=== PATIENT | male | born 1970 | race American Indian/Alaskan Native ===

== ENCOUNTER 2017-06-28 11:31 | Emergency (ER) | payer BC ==
[2017-06-28 11:47] VITALS: BP 144/101
[2017-06-28] MEDS ORDERED: ZYLOPRIM PO ONE (12:57)
--- NOTE | 2017-06-28 13:04 | Emergency Department Report ---
HPI - General Chief Complaint: Extremity Injury, Lower Time Seen by Provider: 06/28/17 12:33 - HPI HPI: Patient is a 46-year-old male presents to ED complaining of left great toe pain that he noticed yesterday. Patient states his left great toe began hurting in his noticed some swelling yesterday. Patient states he did not hit sustaining injury to the foot. Patient states it hurts to put pressure on to the toe. He denies any lesions cuts so that's all, loss of function or sensation. ED Past Medical Hx - Past Medical History Previous Medical History?: Yes Hx Hypertension: Yes (none compliant) Additional medical history: High cholosterol - Surgical History Past Surgical History?: No - Social History Smoking Status: Current Every Day Smoker Substance Use Type: Alcohol, Prescribed - Medications Home Medications: Home Medications Medication Instructions Recorded Confirmed Last Taken Type Ibuprofen [Motrin] 600 mg PO Q8H PRN #30 tablet 09/26/15 Unknown Rx Ciprofloxacin HCl [Ciprofloxacin 500 mg PO BID #20 tablet 03/03/16 Unknown Rx TAB] Metoclopramide [Reglan] 10 mg PO QID PRN #30 tablet 03/03/16 Unknown Rx metroNIDAZOLE [Flagyl] 500 mg PO Q8HR #30 tablet 03/03/16 Unknown Rx oxyCODONE [Roxicodone TAB] 5 mg PO Q6HR PRN #20 tablet 03/03/16 Unknown Rx Cyclobenzaprine [Flexeril] 10 mg PO QHS PRN #20 tablet 06/28/17 Unknown Rx Ibuprofen [Motrin 800 MG tab] 800 mg PO Q8HR PRN #40 tablet 06/28/17 Unknown Rx ED Review of Systems ROS: Stated complaint: LEFT FOOT SWOLLEN Other details as noted in HPI Constitutional: denies: chills, fever Eyes: denies: eye pain, eye discharge, vision change ENT: denies: ear pain, throat pain Respiratory: denies: cough, shortness of breath, wheezing Cardiovascular: denies: chest pain, palpitations Endocrine: no symptoms reported Gastrointestinal: denies: abdominal pain, nausea, diarrhea Genitourinary: denies: urgency, dysuria Musculoskeletal: denies: back pain, joint swelling, arthralgia Skin: denies: rash, lesions Neurological: denies: headache, weakness, numbness, paresthesias, confusion Psychiatric: denies: anxiety, depression Hematological/Lymphatic: denies: easy bleeding, easy bruising Physical Exam - Physical Exam Vital Signs: Vital Signs 06/28/17 11:44 Temperature 98.3 F Pulse Rate 94 H Respiratory 20 Rate Blood Pressure 144/101 O2 Sat by Pulse 98 Oximetry Physical Exam: GENERAL: Alert and oriented x3, no apparent distress, Normal Gait, atraumatic. HEAD: Head is normocephalic and a-traumatic. EYES: Extra ocular muscles are intact. Pupils are equal, round, and reactive to light and accommodation. EARS: symetrical, atraumatic, non tender, ear canal clear and moderate cerumen, tympanic membrance non inflamed. gross auditory nml bilaterally. HEART: S1, S2 present, regular rate and rhythm without murmur, no rubs, no gallops. Non tender to palpation ABDOMEN: No organomegaly was noted,Positive bowel sounds, soft, and non- distended. . Nontender to palpation on all Quadrants, NO CVA tenderness. EXTREMITIES/MUSCULOSKELETAL: No cyanosis, clubbing, rash, lesions or edema. Full ROM bilaterally. UE/LE Pulses 2+ bilaterally. LE and UE 5+ strength bilaterally, left great toe moderately tender to palpation, erythematous, non- erythematous NEUROLOGIC: The patient is cooperative with no focal neurologic deficits. Normal speech. Normal sensation in bilateral upper and lower extremities, No loss of sensation, PSYCHIATRIC: Mood is congruent with affect, denies suicidal or homicidal ideations. SKIN: Warm and dry, No lesions, No ulceration or induration present. Body Four View: 1 - red, non edema, tender to palpation, warm to touch ED Course Vital Signs 06/28/17 11:44 Temperature 98.3 F Pulse Rate 94 H Respiratory 20 Rate Blood Pressure 144/101 O2 Sat by Pulse 98 Oximetry ED Medical Decision Making - Radiology Data Radiology results: report reviewed, image reviewed Ordering Physician: RADHA PARRA Date of Service: 06/28/17 Procedure(s): XR foot 2V LT Accession Number(s): [id number] cc: RADHA PARRA Fluoro Time In Minutes: LEFT FOOT, 2 views: History: Left foot pain The bony architecture is intact. Bony alignment is normal. No soft tissue abnormalities are seen. The joint spaces appear preserved. Moderate to large plantar spur. IMPRESSION: Plantar spur, otherwise, unremarkable exam. Transcribed By: TTR Dictated By: ROMINA VANG JR, MD Electronically Authenticated By: ROMINA VANG JR, MD Signed Date/Time: 06/28/17 8036 - Medical Decision Making 46-year-old male presents to ED with great toe pain of the left ED course: Patient received ED. Foot x-ray obtained. X-rays normal Discussed the patient x-ray results shows plantar spur this could be a cause of inflammation. I discussed the patient will follow up with the special services agent and symptoms worsen I discussed the patient to follow up with primary care physician in 3-5 days. I discussed rest of foot and keep it elevated for the next couple days. Critical care attestation.: If time is entered above; I have spent that time in minutes in the direct care of this critically ill patient, excluding procedure time. ED Disposition Clinical Impression: Foot pain, left, Bone spur of foot Disposition: DC-01 TO HOME OR SELFCARE Is pt being admited?: No Does the pt Need Aspirin: No Condition: Stable Instructions: Plantar Fasciitis (ED), Arthralgia (ED) Additional Instructions: Make sure to follow up with the primary care physician as discussed. Take all your medications as you've been prescribed. If you have any worsening symptoms or develop new symptoms please return to ED immediately. Prescriptions: Cyclobenzaprine [Flexeril] 10 mg PO QHS PRN #20 tablet PRN Reason: Muscle Spasm Ibuprofen [Motrin 800 MG tab] 800 mg PO Q8HR PRN #40 tablet PRN Reason: Pain Referrals: PRIMARY CARE, [Primary Care Provider] - 3-5 Days [facility] [Outside] - 3-5 Days [facility] [Outside] - 3-5 Days [facility] [Outside] - 3-5 Days Forms: Work/School Release Form Time of Disposition: 14:02
--- NOTE | 2017-06-28 13:31 | XRay Report ---
LEFT FOOT, 2 views: History: Left foot pain The bony architecture is intact. Bony alignment is normal. No soft tissue abnormalities are seen. The joint spaces appear preserved. Moderate to large plantar spur. IMPRESSION: Plantar spur, otherwise, unremarkable exam.
== END 2017-06-28 14:12 | disposition home or self-care (01) ==
LOC: ED 11:31
DX: M77.52 Other enthesopathy of left foot and ankle (principal); I10 Essential (primary) hypertension; E78.00 Pure hypercholesterolemia, unspecified; F17.200 Nicotine dependence, unspecified, uncomplicated
CPT/HCPCS: 99283

== ENCOUNTER 2018-04-11 09:53 | Emergency (ER) | payer OTHER, BC ==
[2018-04-11 10:04] VITALS: BP 164/108
[2018-04-11] MEDS ORDERED: MOTRIN PO ONE (10:43)
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
--- NOTE | 2018-04-11 12:10 | XRay Report ---
CERVICAL SPINE, 3 views: History: Neck pain. Findings: Mild degenerative disc disease is identified at C4-5 and C5-6. The remaining levels are within normal limits. The posterior elements are in appropriate relationship. No evidence for fracture, subluxation or bone lesion. Impression: Mild cervical spondylosis.
--- NOTE | 2018-04-11 12:11 | XRay Report ---
AP AND LATERAL LUMBOSACRAL SPINE: History: Low back pain. The vertebral bodies are well mineralized and normal in alignment and vertebral height with well preserved interspace distances. The visualized portions of the posterior elements are normal. IMPRESSION: Lumbar spine within normal limits.
== END 2018-04-11 12:31 | disposition home or self-care (01) ==
LOC: ED 09:53
DX: S39.012A Strain of muscle, fascia and tendon of lower back, initial encounter (principal); S13.4XXA Sprain of ligaments of cervical spine, initial encounter; I10 Essential (primary) hypertension; E78.00 Pure hypercholesterolemia, unspecified; F17.200 Nicotine dependence, unspecified, uncomplicated; Z79.899 Other long term (current) drug therapy; V89.2XXA Person injured in unspecified motor-vehicle accident, traffic, initial encounter; Y93.89 Activity, other specified; Y99.8 Other external cause status; Y92.410 Unspecified street and highway as the place of occurrence of the external cause
CPT/HCPCS: 72040; 72100; 99283

== ENCOUNTER 2018-08-15 10:52 | Emergency (ER) | payer BC ==
[2018-08-15 10:59] VITALS: BP 140/86
[2018-08-15] MEDS ORDERED: IBUPROFEN PO ONE (11:12)
--- NOTE | 2018-08-15 11:15 | Emergency Department Report ---
ED Lower Extremity HPI - General Chief Complaint: Extremity Injury, Lower Stated Complaint: (L) KNEE PAIN Time Seen by Provider: 08/15/18 11:07 Source: patient Mode of arrival: Ambulatory Limitations: No Limitations - History of Present Illness Initial Comments: This is a 48-year-old male nontoxic, well nourished in appearance, no acute signs of distress presents to the ED with c/o of left knee pain 3 weeks. 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 Patient denies any trauma. Patient denies any numbness, tingling, fever, chills, nausea, vomiting, chest pain, shortness of breath, headache, stiff neck. Patient denies any joint swelling or joint redness. Patient denies decreased range of motion. Patient stated has decreased gait due to pain. Patient denies any allergies. MD Complaint: knee injury -: week(s) (3) Injury: Knee: Left Severity: mild Severity scale (0 -10): 8 Improves With: immobilization Worsens With: weight bearing, movement, palpation Associated Symptoms: able to partially bear weight, ambulatory. denies: snap/pop sensation, swelling, numbness, tingling, unable to bear weight - Related Data Previous Rx's Medication Instructions Recorded Last Taken Type Ibuprofen [Motrin] 600 mg PO Q8H PRN #30 tablet 09/26/15 Unknown Rx Ciprofloxacin HCl [Ciprofloxacin 500 mg PO BID #20 tablet 03/03/16 Unknown Rx TAB] Metoclopramide [Reglan] 10 mg PO QID PRN #30 tablet 03/03/16 Unknown Rx metroNIDAZOLE [Flagyl] 500 mg PO Q8HR #30 tablet 03/03/16 Unknown Rx oxyCODONE [Roxicodone TAB] 5 mg PO Q6HR PRN #20 tablet 03/03/16 Unknown Rx Cyclobenzaprine [Flexeril] 10 mg PO QHS PRN #20 tablet 06/28/17 Unknown Rx Ibuprofen [Motrin 800 MG tab] 800 mg PO Q8HR PRN #40 tablet 06/28/17 Unknown Rx Cyclobenzaprine [Flexeril] 10 mg PO QHS PRN #10 tablet 04/11/18 Unknown Rx Ibuprofen [Motrin] 600 mg PO Q8H PRN #20 tablet 04/11/18 Unknown Rx Ibuprofen [Motrin] 600 mg PO Q8H PRN #20 tablet 08/15/18 Unknown Rx Allergies Allergy/AdvReac Type Severity Reaction Status Date / Time No Known Allergies Allergy Verified 07/05/14 10:48 ED Review of Systems ROS: Stated complaint: (L) KNEE PAIN Other details as noted in HPI Constitutional: denies: chills, fever Eyes: denies: eye pain, eye discharge, vision change ENT: denies: ear pain, throat pain Respiratory: denies: cough, shortness of breath, wheezing Cardiovascular: denies: chest pain, palpitations Endocrine: no symptoms reported Gastrointestinal: denies: abdominal pain, nausea, diarrhea Genitourinary: denies: urgency, dysuria Musculoskeletal: denies: back pain, joint swelling, arthralgia Skin: denies: rash, lesions Neurological: denies: headache, weakness, paresthesias Psychiatric: denies: anxiety, depression Hematological/Lymphatic: denies: easy bleeding, easy bruising ED Past Medical Hx - Past Medical History Hx Hypertension: Yes (none compliant) Additional medical history: High cholosterol - Social History Smoking Status: Never Smoker Substance Use Type: Alcohol - Medications Home Medications: Home Medications Medication Instructions Recorded Confirmed Last Taken Type Ibuprofen [Motrin] 600 mg PO Q8H PRN #30 tablet 09/26/15 Unknown Rx Ciprofloxacin HCl [Ciprofloxacin 500 mg PO BID #20 tablet 03/03/16 Unknown Rx TAB] Metoclopramide [Reglan] 10 mg PO QID PRN #30 tablet 03/03/16 Unknown Rx metroNIDAZOLE [Flagyl] 500 mg PO Q8HR #30 tablet 03/03/16 Unknown Rx oxyCODONE [Roxicodone TAB] 5 mg PO Q6HR PRN #20 tablet 03/03/16 Unknown Rx Cyclobenzaprine [Flexeril] 10 mg PO QHS PRN #20 tablet 06/28/17 Unknown Rx Ibuprofen [Motrin 800 MG tab] 800 mg PO Q8HR PRN #40 tablet 06/28/17 Unknown Rx Cyclobenzaprine [Flexeril] 10 mg PO QHS PRN #10 tablet 04/11/18 Unknown Rx Ibuprofen [Motrin] 600 mg PO Q8H PRN #20 tablet 04/11/18 Unknown Rx Ibuprofen [Motrin] 600 mg PO Q8H PRN #20 tablet 08/15/18 Unknown Rx ED Physical Exam - General Limitations: No Limitations General appearance: alert, in no apparent distress - Head Head exam: Present: atraumatic, normocephalic - Extremities Exam Extremities exam: Present: normal inspection, full ROM, tenderness, normal capillary refill. Absent: joint swelling, calf tenderness - Expanded Lower Extremity Exam Left Hip exam: Present: normal inspection, full ROM Upper Leg exam: Present: normal inspection, full ROM Knee exam: Present: normal inspection, full ROM, tenderness, full knee extension. Absent: swelling, abrasion, laceration, ecchymosis, deformity, crepidus, dislocation, erythema, effusion, pain w/ pronation/supination, posterior draw sign, pain/laxity with valgus, pain/laxity with varus Lower Leg exam: Present: normal inspection, full ROM Ankle exam: Present: normal inspection, full ROM Foot/Toe exam: Present: normal inspection, full ROM Neuro vascular tendon exam: Present: no vascular compromise Gait: Positive: observed and normal - Back Exam Back exam: Present: normal inspection, full ROM - Neurological Exam Neurological exam: Present: alert, oriented X3 - Psychiatric Psychiatric exam: Present: normal affect, normal mood - Skin Skin exam: Present: warm, dry, intact, normal color. Absent: rash ED Course Vital Signs 08/15/18 08/15/18 10:57 11:24 Temperature 97.7 F Pulse Rate 97 H Respiratory 18 18 Rate Blood Pressure 140/86 O2 Sat by Pulse 99 Oximetry - Reevaluation(s) Reevaluation #1: 08/15/18 11:14 Patient is speaking in full sentences with no signs of distress noted. ED Lower Extremity MDM - Medical Decision Making This is a 48-year-old male that presents with left knee strain. Patient is stable and was examined by me. I referred patient to an orthopedic doctor for further evaluation for possible MRI. X-ray has been obtained and dictated by the radiologist. Patient is notified of the x-ray report with noted by the patient. Patient does have normal gait with no tenderness and no joint swelling. No ecchymosis. no joint redness or swelling. Not warm to touch. No signs of cellulites present. Patient was instructed to RICE therapy. Patient received janis wrap. Patient received Motrin for pain. Patient is discharged with Motrin. At time of discharge, the patient does not seem toxic or ill in appearance. No acute signs of distress noted. Patient agrees to discharge treatment plan of care. No further questions noted by the patient. Critical care attestation.: If time is entered above; I have spent that time in minutes in the direct care of this critically ill patient, excluding procedure time. ED Disposition Clinical Impression: Strain of left knee Qualifiers: Encounter type: initial encounter Qualified Code(s): S86.912A - Strain of unspecified muscle(s) and tendon(s) at lower leg level, left leg, initial encounter Disposition: TO HOME OR SELFCARE Is pt being admited?: No Does the pt Need Aspirin: No Condition: Stable Instructions: Knee Pain (ED), RICE Therapy (ED) Additional Instructions: Follow-up with a orthopedic doctor in 3-5 days or if symptoms worsen and continue return to emergency room as soon as possible. Prescriptions: Ibuprofen [Motrin] 600 mg PO Q8H PRN #20 tablet PRN Reason: Pain Referrals: PRIMARY CAREMD [Referring] - 3-5 Days CAMRON ARTEAGA MD [Staff Physician] - 3-5 Days [facility] [Outside] - 3-5 Days Forms: Work/School Release Form(ED)
--- NOTE | 2018-08-15 12:00 | XRay Report ---
LEFT KNEE, 3 views: History: Knee pain The bony architecture is intact without evidence of fracture or dislocation. A small joint effusion is identified on the lateral image. IMPRESSION: Small joint effusion. No bony abnormality is detected.
== END 2018-08-15 12:20 | disposition home or self-care (01) ==
LOC: ED 10:52
DX: S86.912A Strain of unspecified muscle(s) and tendon(s) at lower leg level, left leg, initial encounter (principal); X58.XXXA Exposure to other specified factors, initial encounter; Y93.89 Activity, other specified; Y92.89 Other specified places as the place of occurrence of the external cause; Y99.8 Other external cause status

== ENCOUNTER 2019-10-22 08:27 | Emergency (ER) | payer BC ==
[2019-10-22 08:33] VITALS: BP 155/97
[2019-10-22] MEDS ORDERED: IBUPROFEN 800 MG TAB PO ONE (09:08)
--- NOTE | 2019-10-22 09:53 | XRay Report ---
Right elbow, 3 views INDICATION: Pain and swelling today FINDINGS: The joint space is maintained. There is no fracture or dislocation. There is moderate size spur from the olecranon and there may be slight olecranon bursal swelling. Otherwise no abnormality Signer Name: Kentrell Martinez MD Signed: 10/22/2019 9:48 AM Workstation Name: [id number]
--- NOTE | 2019-10-22 10:04 | Emergency Department Report ---
ED Upper Extremity Inj HPI - General Chief Complaint: Extremity Injury, Upper Stated Complaint: RIGHT ELBOW SWOLLEN Time Seen by Provider: 10/22/19 08:57 Source: patient Mode of arrival: Ambulatory Limitations: No Limitations - History of Present Illness Initial Comments: This is a 49-year-old male nontoxic, well nourished in appearance, no acute signs of distress presents to the ED with c/o of right elbow pain 1 day. Patient denies any known injuries or trauma. Patient denies any numbness, tingling, fever, chills, nausea, vomiting, chest pain, shortness of breath, headache, stiff neck. Patient denies any joint swelling or joint redness. Patient denies decreased range of motion. Patient denies any allergies or significant past medical history. MD Complaint: Injury to:: right, elbow -: days(s) Other Extremity Injury: Elbow: Right Other Injuries: none Severity scale (0 -10): 3 Improves With: immobilization Worsens With: movement of extremity Associated Symptoms: denies other symptoms. denies: weakness, numbness, neck pain, suspects foreign body, nausea/vomiting, heard/felt popping sensat - Related Data Previous Rx's Medication Instructions Recorded Last Taken Type Ibuprofen [Motrin] 600 mg PO Q8H PRN #30 tablet 09/26/15 Unknown Rx Ciprofloxacin HCl [Ciprofloxacin 500 mg PO BID #20 tablet 03/03/16 Unknown Rx TAB] Metoclopramide [Reglan] 10 mg PO QID PRN #30 tablet 03/03/16 Unknown Rx metroNIDAZOLE [Flagyl] 500 mg PO Q8HR #30 tablet 03/03/16 Unknown Rx oxyCODONE [roxiCODONE] 5 mg PO Q6HR PRN #20 tablet 03/03/16 Unknown Rx Cyclobenzaprine [Flexeril] 10 mg PO QHS PRN #20 tablet 06/28/17 Unknown Rx Ibuprofen [Motrin 800 MG tab] 800 mg PO Q8HR PRN #40 tablet 06/28/17 Unknown Rx Cyclobenzaprine [Flexeril] 10 mg PO QHS PRN #10 tablet 04/11/18 Unknown Rx Ibuprofen [Motrin] 600 mg PO Q8H PRN #20 tablet 04/11/18 Unknown Rx Ibuprofen [Motrin] 600 mg PO Q8H PRN #20 tablet 08/15/18 Unknown Rx Naproxen 500 mg PO Q12H PRN #20 tablet 10/22/19 Unknown Rx Allergies Allergy/AdvReac Type Severity Reaction Status Date / Time No Known Allergies Allergy Verified 07/05/14 10:48 ED Review of Systems ROS: Stated complaint: RIGHT ELBOW SWOLLEN Other details as noted in HPI Constitutional: denies: chills, fever Eyes: denies: eye pain, eye discharge, vision change ENT: denies: ear pain, throat pain Respiratory: denies: cough, shortness of breath, wheezing Cardiovascular: denies: chest pain, palpitations Endocrine: no symptoms reported Gastrointestinal: denies: abdominal pain, nausea, diarrhea Genitourinary: denies: urgency, dysuria Musculoskeletal: denies: back pain, joint swelling, arthralgia Skin: denies: rash, lesions Neurological: denies: headache, weakness, paresthesias Psychiatric: denies: anxiety, depression Hematological/Lymphatic: denies: easy bleeding, easy bruising ED Past Medical Hx - Past Medical History Previous Medical History?: Yes Hx Hypertension: Yes (none compliant) Additional medical history: High cholosterol - Surgical History Past Surgical History?: No - Social History Smoking Status: Current Every Day Smoker Substance Use Type: Alcohol - Medications Home Medications: Home Medications Medication Instructions Recorded Confirmed Last Taken Type Ibuprofen [Motrin] 600 mg PO Q8H PRN #30 tablet 09/26/15 Unknown Rx Ciprofloxacin HCl [Ciprofloxacin 500 mg PO BID #20 tablet 03/03/16 Unknown Rx TAB] Metoclopramide [Reglan] 10 mg PO QID PRN #30 tablet 03/03/16 Unknown Rx metroNIDAZOLE [Flagyl] 500 mg PO Q8HR #30 tablet 03/03/16 Unknown Rx oxyCODONE [roxiCODONE] 5 mg PO Q6HR PRN #20 tablet 03/03/16 Unknown Rx Cyclobenzaprine [Flexeril] 10 mg PO QHS PRN #20 tablet 06/28/17 Unknown Rx Ibuprofen [Motrin 800 MG tab] 800 mg PO Q8HR PRN #40 tablet 06/28/17 Unknown Rx Cyclobenzaprine [Flexeril] 10 mg PO QHS PRN #10 tablet 04/11/18 Unknown Rx Ibuprofen [Motrin] 600 mg PO Q8H PRN #20 tablet 04/11/18 Unknown Rx Ibuprofen [Motrin] 600 mg PO Q8H PRN #20 tablet 08/15/18 Unknown Rx Naproxen 500 mg PO Q12H PRN #20 tablet 10/22/19 Unknown Rx ED Physical Exam - General Limitations: No Limitations General appearance: alert, in no apparent distress - Head Head exam: Present: atraumatic, normocephalic - Extremities Exam Extremities exam: Present: normal inspection, full ROM, tenderness, normal capillary refill. Absent: joint swelling - Expanded Upper Extremity Exam Right General: Present: normal inspection Shoulder Exam: Present: normal inspection, full ROM. Absent: tenderness, swelling Upper Arm exam: Present: normal inspection, full ROM. Absent: tenderness, swelling Elbow exam: Present: normal inspection, full ROM, tenderness, effusion. Absent: swelling, abrasion, laceration, ecchymosis, deformity, crepidus, dislocation, erythema, pain w/ pronation/supination, tenderness over radial head Forearm Wrist exam: Present: normal inspection, full ROM. Absent: tenderness, swelling Hand Wrist exam: Present: normal inspection, full ROM. Absent: tenderness, swelling Vascular: Present: vascular compromise, normal capillary refill - Back Exam Back exam: Present: normal inspection, full ROM - Neurological Exam Neurological exam: Present: alert, oriented X3, normal gait - Psychiatric Psychiatric exam: Present: normal affect, normal mood ED Course Vital Signs 10/22/19 08:32 Temperature 98.4 F Pulse Rate 83 Respiratory 18 Rate Blood Pressure 155/97 O2 Sat by Pulse 99 Oximetry - Reevaluation(s) Reevaluation #1: 10/22/19 10:02 Patient is speaking in full sentences with no signs of distress noted. ED Medical Decision Making - Medical Decision Making This is a 49-year-old male that presents with right elbow bursitis. Patient is stable and was examined by me. I referred patient to an orthopedic doctor for further evaluation for possible MRI. X-ray has been obtained and dictated by the radiologist. Patient is notified of the x-ray report with noted by the patient. Patient does have normal ROM with no tenderness and no joint swelling. No ecchymosis. no joint redness or swelling. Not warm to touch. No signs of cellulites present. Patient was instructed to RICE therapy. Patient received Motrin for pain. Patient is discharged with Naproxen. At time of discharge, the patient does not seem toxic or ill in appearance. No acute signs of distress noted. Patient agrees to discharge treatment plan of care. No further questions noted by the patient. Critical care attestation.: If time is entered above; I have spent that time in minutes in the direct care of this critically ill patient, excluding procedure time. ED Disposition Clinical Impression: Olecranon bursitis, right elbow Disposition: TO HOME OR SELFCARE Is pt being admited?: No Does the pt Need Aspirin: No Condition: Stable Instructions: Elbow Bursitis (ED), RICE Therapy (ED) Additional Instructions: Follow-up with a orthopedic doctor in 3-5 days or if symptoms worsen and continue return to emergency room as soon as possible. Prescriptions: Naproxen 500 mg PO Q12H PRN #20 tablet PRN Reason: Pain , Severe (7-10) Referrals: GAVIOTA SUAREZ MD [Primary Care Provider] - 3-5 Days [facility]IMARY [facility] [Referring] - 3-5 Days [facility] [Provider Group] - 3-5 Days Forms: Work/School Release Form(ED)
== END 2019-10-22 10:11 | disposition home or self-care (01) ==
LOC: ED 08:27
DX: M70.21 Olecranon bursitis, right elbow (principal); I10 Essential (primary) hypertension; F17.200 Nicotine dependence, unspecified, uncomplicated; Z79.899 Other long term (current) drug therapy
CPT/HCPCS: 99283

== ENCOUNTER 2020-05-07 09:43 | Emergency (ER) | payer BC ==
[2020-05-07 10:05] VITALS: BP 130/88
[2020-05-07] MEDS ORDERED: KETOROLAC 30 MG/1 ML INJ IM ONE (11:13)
--- NOTE | 2020-05-07 11:20 | Emergency Department Report ---
ED Back Pain/Injury HPI - General Chief Complaint: Back Pain/Injury Stated Complaint: COLD LOWER BACK PAINS Time Seen by Provider: 05/07/20 10:54 Source: patient Limitations: No Limitations - History of Present Illness Initial Comments: This is a pleasant 49-year-old male who presents the emerge department chief complaint of left-sided lower back pain that does not radiate over the past 2 days. Patient reports he recently moved and thinks he may have twisted his back. He also reports he has been having nasal congestion, cough and fatigue over the past 2 days. He reports his son had an upper respiratory infection and his symptoms are similar. Patient denies any associated fever, chills, night sweats, headache, dizziness, blurry vision, nausea, vomiting, diarrhea, chest pain, shortness of breath, saddle anesthesia, urinary or bowel incontinence or any other associated symptoms. - Related Data Previous Rx's Medication Instructions Recorded Last Taken Type Ibuprofen [Motrin] 600 mg PO Q8H PRN #30 tablet 09/26/15 Unknown Rx Ciprofloxacin HCl [Ciprofloxacin 500 mg PO BID #20 tablet 03/03/16 Unknown Rx TAB] Metoclopramide [Reglan] 10 mg PO QID PRN #30 tablet 03/03/16 Unknown Rx metroNIDAZOLE [Flagyl] 500 mg PO Q8HR #30 tablet 03/03/16 Unknown Rx oxyCODONE [roxiCODONE] 5 mg PO Q6HR PRN #20 tablet 03/03/16 Unknown Rx Cyclobenzaprine [Flexeril] 10 mg PO QHS PRN #20 tablet 06/28/17 Unknown Rx Ibuprofen [Motrin 800 MG tab] 800 mg PO Q8HR PRN #40 tablet 06/28/17 Unknown Rx Cyclobenzaprine [Flexeril] 10 mg PO QHS PRN #10 tablet 04/11/18 Unknown Rx Ibuprofen [Motrin] 600 mg PO Q8H PRN #20 tablet 04/11/18 Unknown Rx Ibuprofen [Motrin] 600 mg PO Q8H PRN #20 tablet 08/15/18 Unknown Rx Naproxen 500 mg PO Q12H PRN #20 tablet 10/22/19 Unknown Rx methOCARBAMOL [Robaxin TAB] 500 mg PO Q6H #30 tablet 05/07/20 Unknown Rx methylPREDNISolone [Medrol 4MG 4 mg PO ONCE #1 tab.ds.pk 05/07/20 Unknown Rx DOSEPAK (21 tabs)] Allergies Allergy/AdvReac Type Severity Reaction Status Date / Time No Known Allergies Allergy Verified 07/05/14 10:48 ED Review of Systems ROS: Stated complaint: COLD LOWER BACK PAINS Other details as noted in HPI Constitutional: denies: chills, fever Eyes: denies: eye pain, eye discharge, vision change ENT: as per HPI, congestion. denies: ear pain, throat pain Respiratory: see HPI, cough. denies: shortness of breath, wheezing Cardiovascular: denies: chest pain, palpitations Endocrine: no symptoms reported Gastrointestinal: denies: abdominal pain, nausea, diarrhea Genitourinary: denies: urgency, dysuria Musculoskeletal: as per HPI, back pain. denies: joint swelling, arthralgia Skin: denies: rash, lesions Neurological: denies: headache, weakness, paresthesias Psychiatric: denies: anxiety, depression Hematological/Lymphatic: denies: easy bleeding, easy bruising ED Past Medical Hx - Past Medical History Hx Hypertension: Yes (none compliant) Additional medical history: High cholosterol - Social History Smoking Status: Current Every Day Smoker Substance Use Type: Alcohol - Medications Home Medications: Home Medications Medication Instructions Recorded Confirmed Last Taken Type Ibuprofen [Motrin] 600 mg PO Q8H PRN #30 tablet 09/26/15 Unknown Rx Ciprofloxacin HCl [Ciprofloxacin 500 mg PO BID #20 tablet 03/03/16 Unknown Rx TAB] Metoclopramide [Reglan] 10 mg PO QID PRN #30 tablet 03/03/16 Unknown Rx metroNIDAZOLE [Flagyl] 500 mg PO Q8HR #30 tablet 03/03/16 Unknown Rx oxyCODONE [roxiCODONE] 5 mg PO Q6HR PRN #20 tablet 03/03/16 Unknown Rx Cyclobenzaprine [Flexeril] 10 mg PO QHS PRN #20 tablet 06/28/17 Unknown Rx Ibuprofen [Motrin 800 MG tab] 800 mg PO Q8HR PRN #40 tablet 06/28/17 Unknown Rx Cyclobenzaprine [Flexeril] 10 mg PO QHS PRN #10 tablet 04/11/18 Unknown Rx Ibuprofen [Motrin] 600 mg PO Q8H PRN #20 tablet 04/11/18 Unknown Rx Ibuprofen [Motrin] 600 mg PO Q8H PRN #20 tablet 08/15/18 Unknown Rx Naproxen 500 mg PO Q12H PRN #20 tablet 10/22/19 Unknown Rx methOCARBAMOL [Robaxin TAB] 500 mg PO Q6H #30 tablet 05/07/20 Unknown Rx methylPREDNISolone [Medrol 4MG 4 mg PO ONCE #1 tab.ds.pk 05/07/20 Unknown Rx DOSEPAK (21 tabs)] ED Physical Exam - General Limitations: No Limitations General appearance: alert, in no apparent distress - Head Head exam: Present: atraumatic, normocephalic - Eye Eye exam: Present: normal appearance, PERRL, EOMI Pupils: Present: normal accommodation - ENT ENT exam: Present: normal exam, normal orophraynx, mucous membranes moist - Neck Neck exam: Present: normal inspection, full ROM. Absent: tenderness, meningismus - Respiratory Respiratory exam: Present: normal lung sounds bilaterally. Absent: respiratory distress, wheezes, rales, rhonchi, stridor - Cardiovascular Cardiovascular Exam: Present: regular rate, normal rhythm, normal heart sounds. Absent: systolic murmur, diastolic murmur, rubs, gallop - GI/Abdominal GI/Abdominal exam: Present: soft, normal bowel sounds. Absent: distended, tenderness, guarding, rebound, rigid - Rectal Rectal exam: Present: deferred - Extremities Exam Extremities exam: Present: normal inspection, full ROM, tenderness. Absent: calf tenderness - Back Exam Back exam: Present: normal inspection, full ROM, tenderness, paraspinal tenderness (TTP to left paraspinal area. no midline cervical, thoracic or lumbar TTP ). Absent: CVA tenderness (R), CVA tenderness (L) - Neurological Exam Neurological exam: Present: alert, oriented X3, CN II-XII intact, normal gait, reflexes normal (Normal patellar and Achilles tendon reflexes 2+ bilaterally) - Psychiatric Psychiatric exam: Present: normal affect, normal mood - Skin Skin exam: Present: warm, dry, intact, normal color. Absent: rash ED Course Vital Signs 05/07/20 10:02 Temperature 98.3 F Pulse Rate 95 H Respiratory 18 Rate Blood Pressure 130/88 O2 Sat by Pulse 95 Oximetry ED Medical Decision Making - Medical Decision Making Patient nontoxic no acute distress. Vitals are stable. Patient had no red flags for his back pain with no fever, saddle anesthesia, urinary or bowel incontinence, urinary retention. He had a normal nonfocal neurologic exam. He had only minimal pain with extension but no pain with flexion. Suspect the patient's pain is likely musculoskeletal. I will give an injection of Toradol in the emerge department and due to his cold symptoms which I think are likely related to a viral respiratory tract infection will send home with steroids and cough medication. Do not think any antibiotics are necessary at this time. His lung sounds are clear. He is PERC negative and his Wells criteria is a low risk for PE. Recommend he return to the emergency department any change or worsening symptoms were follow-up with primary care doctor. - Differential Diagnosis URI, pneumonia, strain, sprain Critical care attestation.: If time is entered above; I have spent that time in minutes in the direct care of this critically ill patient, excluding procedure time. ED Disposition Clinical Impression: Acute myofascial strain of lumbosacral region Qualifiers: Encounter type: initial encounter Qualified Code(s): S39.012A - Strain of muscle, fascia and tendon of lower back, initial encounter URI (upper respiratory infection) Qualifiers: URI type: unspecified viral URI Qualified Code(s): J06.9 - Acute upper respiratory infection, unspecified Disposition: DC- TO HOME OR SELFCARE Is pt being admited?: No Condition: Stable Instructions: Muscle Strain (ED) Prescriptions: methylPREDNISolone [Medrol 4MG DOSEPAK (21 tabs)] 4 mg PO ONCE #1 tab.ds.pk methOCARBAMOL [Robaxin TAB] 500 mg PO Q6H #30 tablet Referrals: ALEJANDRO REYES MD [Primary Care Provider] - 3-5 Days Forms: Work/School Release Form(ED) Time of Disposition: 11:28
== END 2020-05-07 13:58 | disposition home or self-care (01) ==
LOC: ED 09:43
DX: S39.012A Strain of muscle, fascia and tendon of lower back, initial encounter (principal); J06.9 Acute upper respiratory infection, unspecified; I10 Essential (primary) hypertension; F17.200 Nicotine dependence, unspecified, uncomplicated; Z79.1 Long term (current) use of non-steroidal anti-inflammatories (NSAID); Z79.899 Other long term (current) drug therapy; X50.1XXA Overexertion from prolonged static or awkward postures, initial encounter; Y93.89 Activity, other specified; Y92.89 Other specified places as the place of occurrence of the external cause; Y99.8 Other external cause status
CPT/HCPCS: 99281

== ENCOUNTER 2020-05-19 06:51 | Emergency (ER) | payer BC, OTHER ==
[2020-05-19 07:00] VITALS: BP 168/98
[2020-05-19] MEDS ORDERED: dexAMETHasone 20 MG/5 ML VIAL IM ONE (08:57)
[2020-05-19] MEDS ORDERED: KETOROLAC 60 MG/2 ML INJ IM ONE (08:57)
--- NOTE | 2020-05-19 09:00 | XRay Report ---
LEFT ANKLE 2 VIEWS INDICATION / CLINICAL INFORMATION: swelling and pain COMPARISON: None available. FINDINGS: BONES / JOINT(S): No acute fracture or subluxation. No significant arthritis. There is spurring on th e calcaneus at the insertion site of the plantar fascia. SOFT TISSUES: No significant abnormality. ADDITIONAL FINDINGS: None. Signer Name: Abdoul Crocker MD Signed: 05/19/2020 8:56 AM Workstation Name: [id number]
--- NOTE | 2020-05-19 09:12 | Emergency Department Report ---
ED General Adult HPI - General Chief complaint: Extremity Problem,Nontraumatic Stated complaint: LEFT FOOT SWOLLEN Time Seen by Provider: 05/19/20 07:58 Source: patient Mode of arrival: Ambulatory Limitations: No Limitations - History of Present Illness Initial comments: 49-year-old -[place] male patient with history of hypertension presents with complaints of sudden onset of left foot pain x yesterday. He denies any injury to the foot, fever/chills/sweats, wounds, or history of gout. Patient rates his pain as 8/10 in severity and states it worsened upon waking this morning. He also denies any numbness/tingling/weakness in his foot, but does report some mild swelling and warmth to the foot -: Sudden Severity scale (0 -10): 8 - Related Data Previous Rx's Medication Instructions Recorded Last Taken Type Ibuprofen [Motrin] 600 mg PO Q8H PRN #30 tablet 09/26/15 Unknown Rx Ciprofloxacin HCl [Ciprofloxacin 500 mg PO BID #20 tablet 03/03/16 Unknown Rx TAB] Metoclopramide [Reglan] 10 mg PO QID PRN #30 tablet 03/03/16 Unknown Rx metroNIDAZOLE [Flagyl] 500 mg PO Q8HR #30 tablet 03/03/16 Unknown Rx oxyCODONE [roxiCODONE] 5 mg PO Q6HR PRN #20 tablet 03/03/16 Unknown Rx Cyclobenzaprine [Flexeril] 10 mg PO QHS PRN #20 tablet 06/28/17 Unknown Rx Ibuprofen [Motrin 800 MG tab] 800 mg PO Q8HR PRN #40 tablet 06/28/17 Unknown Rx Cyclobenzaprine [Flexeril] 10 mg PO QHS PRN #10 tablet 04/11/18 Unknown Rx Ibuprofen [Motrin] 600 mg PO Q8H PRN #20 tablet 04/11/18 Unknown Rx Ibuprofen [Motrin] 600 mg PO Q8H PRN #20 tablet 08/15/18 Unknown Rx Naproxen 500 mg PO Q12H PRN #20 tablet 10/22/19 Unknown Rx methOCARBAMOL [Robaxin TAB] 500 mg PO Q6H #30 tablet 05/07/20 Unknown Rx methylPREDNISolone [Medrol 4MG 4 mg PO ONCE #1 tab.ds.pk 05/07/20 Unknown Rx DOSEPAK (21 tabs)] Indomethacin 50 mg PO Q8H PRN 7 Days #21 capsule 05/19/20 Unknown Rx Allergies Allergy/AdvReac Type Severity Reaction Status Date / Time No Known Allergies Allergy Verified 07/05/14 10:48 ED Review of Systems ROS: Stated complaint: LEFT FOOT SWOLLEN Other details as noted in HPI Constitutional: denies: chills, diaphoresis, fever, malaise, weakness Respiratory: denies: shortness of breath Endocrine: denies: excessive sweating Gastrointestinal: denies: nausea, vomiting Musculoskeletal: joint swelling, arthralgia Skin: denies: rash, lesions, change in color Neurological: abnormal gait (Secondary to pain per pain). denies: numbness, paresthesias Hematological/Lymphatic: denies: easy bleeding, easy bruising, swollen glands ED Past Medical Hx - Past Medical History Previous Medical History?: Yes Hx Hypertension: Yes (none compliant) Additional medical history: High cholosterol - Surgical History Past Surgical History?: No - Social History Smoking Status: Current Every Day Smoker - Medications Home Medications: Home Medications Medication Instructions Recorded Confirmed Last Taken Type Ibuprofen [Motrin] 600 mg PO Q8H PRN #30 tablet 09/26/15 Unknown Rx Ciprofloxacin HCl [Ciprofloxacin 500 mg PO BID #20 tablet 03/03/16 Unknown Rx TAB] Metoclopramide [Reglan] 10 mg PO QID PRN #30 tablet 03/03/16 Unknown Rx metroNIDAZOLE [Flagyl] 500 mg PO Q8HR #30 tablet 03/03/16 Unknown Rx oxyCODONE [roxiCODONE] 5 mg PO Q6HR PRN #20 tablet 03/03/16 Unknown Rx Cyclobenzaprine [Flexeril] 10 mg PO QHS PRN #20 tablet 06/28/17 Unknown Rx Ibuprofen [Motrin 800 MG tab] 800 mg PO Q8HR PRN #40 tablet 06/28/17 Unknown Rx Cyclobenzaprine [Flexeril] 10 mg PO QHS PRN #10 tablet 04/11/18 Unknown Rx Ibuprofen [Motrin] 600 mg PO Q8H PRN #20 tablet 04/11/18 Unknown Rx Ibuprofen [Motrin] 600 mg PO Q8H PRN #20 tablet 08/15/18 Unknown Rx Naproxen 500 mg PO Q12H PRN #20 tablet 10/22/19 Unknown Rx methOCARBAMOL [Robaxin TAB] 500 mg PO Q6H #30 tablet 05/07/20 Unknown Rx methylPREDNISolone [Medrol 4MG 4 mg PO ONCE #1 tab.ds.pk 05/07/20 Unknown Rx DOSEPAK (21 tabs)] Indomethacin 50 mg PO Q8H PRN 7 Days #21 capsule 05/19/20 Unknown Rx ED Physical Exam - General Limitations: No Limitations General appearance: alert, in no apparent distress - Head Head exam: Present: atraumatic, normocephalic - Eye Eye exam: Present: normal appearance - ENT ENT exam: Present: mucous membranes moist - Neck Neck exam: Present: normal inspection - Respiratory Respiratory exam: Absent: respiratory distress - Cardiovascular Cardiovascular Exam: Present: tachycardia (Mild) - Extremities Exam Extremities exam: Present: full ROM, tenderness - Expanded Lower Extremity Exam Left Foot/Toe exam: Present: full ROM, tenderness (Significant tenderness to palpation atop the ankle and proximal metatarsals), swelling (Mild left lateral with warmth and no overlying erythema). Absent: abrasion, deformity, erythema, puncture wound, calcaneal tenderness Neuro vascular tendon exam: Present: no vascular compromise. Absent: motor deficit, sensory deficit - Neurological Exam Neurological exam: Present: alert, oriented X3 - Psychiatric Psychiatric exam: Present: normal affect, normal mood - Skin Skin exam: Present: warm, dry, intact, normal color. Absent: rash, cyanosis, diaphoretic, ecchymosis ED Course Vital Signs 05/19/20 06:57 Temperature 98.6 F Pulse Rate 98 H Respiratory 18 Rate Blood Pressure 168/98 O2 Sat by Pulse 100 Oximetry ED Medical Decision Making - Lab Data Result diagrams: 05/19/20 09:10 05/19/20 09:10 - Radiology Data Radiology results: report reviewed LEFT ANKLE 2 VIEWS INDICATION / CLINICAL INFORMATION: swelling and pain COMPARISON: None available. FINDINGS: BONES / JOINT(S): No acute fracture or subluxation. No significant arthritis. There is spurring on the calcaneus at the insertion site of the plantar fascia. SOFT TISSUES: No significant abnormality. ADDITIONAL FINDINGS: None. - Medical Decision Making 49-year-old -[place] male patient with history of hypertension presents with complaints of sudden onset of left foot pain x yesterday. He denies any injury to the foot, fever/chills/sweats, wounds, or history of gout. Patient rates his pain as 8/10 in severity and states it worsened upon waking this morning. He also denies any numbness/tingling/weakness in his foot, but does report some mild swelling and warmth to the foot No significant abnormalities noted on x-ray. There is warmth and mild swelling of the joint on exam with significant tenderness to palpation. Patient was minimally tachycardic on exam also, so labs were obtained. No significant abnormalities on CBC or BMP, however uric acid is mildly elevated at 8.5. Will treat for acute gouty arthritis with Toradol and Decadron. Indomethacin prescription given for home. Patient to follow-up with primary care doctor in 3 days. His pain is controlled, he is well-appearing, he is stable for discharge home. Strict return precautions were discussed in detail with patient who verbalized understanding. Critical care attestation.: If time is entered above; I have spent that time in minutes in the direct care of this critically ill patient, excluding procedure time. ED Disposition Clinical Impression: Gout of left foot Qualifiers: Gout etiology: idiopathic Chronicity: acute Qualified Code(s): M10.072 - Idiopathic gout, left ankle and foot Disposition: DC- TO HOME OR SELFCARE Is pt being admited?: No Condition: Stable Instructions: Low-Purine Eating Plan, Calcium Pyrophosphate Deposition Prescriptions: Indomethacin 50 mg PO Q8H PRN 7 Days #21 capsule PRN Reason: pain Referrals: PRIMARY CARE [Primary Care Provider] - 05/22/20
[2020-05-19 09:26] LABS: Basophils # (Auto) 0.1 K/mm3 (0.0-0.1); Basophils % (Auto) 0.7 % (0.0-1.8); Eosinophils # (Auto) 0.2 K/mm3 (0.0-0.4); Eosinophils % (Auto) 2.2 % (0.0-4.3); Hematocrit 42.9 % (35.5-45.6); Hemoglobin 14.5 gm/dl (11.8-15.2); Lymphocytes # (Auto) 1.5 K/mm3 (1.2-5.4); Lymphocytes % (Auto) 19.1 % (13.4-35.0); Mean Corpuscular HGB Conc 34 % (32-34); Mean Corpuscular Volume 86 fl (84-94); Monocytes # (Auto) 0.8 K/mm3 (0.0-0.8); Monocytes % (Auto) 9.5 % (0.0-7.3); Platelet Count 303 K/mm3 (140-440); Red Blood Count 4.97 M/mm3 (3.65-5.03); Red Cell Distribution Width 13.5 % (13.2-15.2)
[2020-05-19 09:45] LABS: BUN/Creatinine Ratio 12; Blood Urea Nitrogen 13 mg/dL (9-20); Calcium 9.5 mg/dL (8.4-10.2); Hemolysis Index 9; Uric Acid 8.5 mg/dL (3.5-7.6)
[2020-05-19] MEDS ORDERED: oxyCODONE /ACETAMINOPHEN 5-325MG TAB PO ONE (10:02)
== END 2020-05-19 10:19 | disposition home or self-care (01) ==
LOC: ED 06:51
DX: M10.072 Idiopathic gout, left ankle and foot (principal); I10 Essential (primary) hypertension; E78.00 Pure hypercholesterolemia, unspecified; F17.200 Nicotine dependence, unspecified, uncomplicated; Z79.899 Other long term (current) drug therapy
CPT/HCPCS: 36415; 73600; 80048; 84550; 85025; 96372; 99283; J1100; J1885

== ENCOUNTER 2021-01-20 08:24 | Emergency (ER) | payer BC ==
[2021-01-20 08:29] VITALS: BP 151/97
--- NOTE | 2021-01-20 09:33 | Emergency Department Report ---
Upper Extremity - HPI Chief Complaint: Extremity Problem,Nontraumatic Stated Complaint: RIGHT ELBOW PAIN Time Seen by Provider: 01/20/21 09:29 Upper Extremity: Right Elbow Occurred When: 1 Day Mechanism: Unsure Severity: mild Symptoms: Yes Pain with Movement, Yes Swelling, No Deformity, No Limited Range of Movement, No Numbness, No Weakness, No Bruising/Ecchymosis, No Laceration or Abrasion Other History: Patient is a pleasant 50-year-old gentleman, who is right-hand dominant, who works in this hospital, in the [employer] department. He has a known history of olecranon right-sided bursitis. He denies a history of gout. He presents to the ER today with a complaint of nontraumatic right posterior elbow swelling, and minimal discomfort. He reports a number of repetitive range of motion. He denies additional injuries and complaints. He has not really taken anything [id number] for this. He reports that this is similar to his prior episode of olecranon bursitis. He specifically denies fever, chills, polyarthritis, Covid symptoms, weakness, numbness, chest pain, abdominal pain, shortness of breath, and intravenous drug use. His discomfort is minimal, aching, increases with range of motion and palpation, and decreases with rest. It does not radiate anywhere. He is asking if he can go back to work ED Review of Systems ROS: Stated complaint: RIGHT ELBOW PAIN Other details as noted in HPI Comment: All other systems reviewed and negative Constitutional: denies: fever Musculoskeletal: joint swelling, arthralgia. denies: myalgia ED Past Medical Hx - Past Medical History Previous Medical History?: Yes Hx Hypertension: Yes (none compliant) Additional medical history: High cholosterol - Surgical History Past Surgical History?: No - Social History Smoking Status: Current Every Day Smoker - Medications Home Medications: Home Medications Medication Instructions Recorded Confirmed Last Taken Type Ibuprofen [Motrin] 600 mg PO Q8H PRN #30 tablet 09/26/15 Unknown Rx Ciprofloxacin HCl [Ciprofloxacin 500 mg PO BID #20 tablet 03/03/16 Unknown Rx TAB] Metoclopramide [Reglan] 10 mg PO QID PRN #30 tablet 03/03/16 Unknown Rx metroNIDAZOLE [Flagyl] 500 mg PO Q8HR #30 tablet 03/03/16 Unknown Rx oxyCODONE [roxiCODONE] 5 mg PO Q6HR PRN #20 tablet 03/03/16 Unknown Rx Cyclobenzaprine [Flexeril] 10 mg PO QHS PRN #20 tablet 06/28/17 Unknown Rx Ibuprofen [Motrin 800 MG tab] 800 mg PO Q8HR PRN #40 tablet 06/28/17 Unknown Rx Cyclobenzaprine [Flexeril] 10 mg PO QHS PRN #10 tablet 04/11/18 Unknown Rx Ibuprofen [Motrin] 600 mg PO Q8H PRN #20 tablet 04/11/18 Unknown Rx Ibuprofen [Motrin] 600 mg PO Q8H PRN #20 tablet 08/15/18 Unknown Rx Naproxen 500 mg PO Q12H PRN #20 tablet 10/22/19 Unknown Rx methOCARBAMOL [Robaxin TAB] 500 mg PO Q6H #30 tablet 05/07/20 Unknown Rx methylPREDNISolone [Medrol 4MG 4 mg PO ONCE #1 tab.ds.pk 05/07/20 Unknown Rx DOSEPAK (21 tabs)] Indomethacin 50 mg PO Q8H PRN 7 Days #21 capsule 05/19/20 Unknown Rx Upper Extremity Exam - Exam General: Vital signs noted. No distress. Alert and acting appropriately. No facial droop. Tongue midline. Extraocular movements intact bilaterally. Facial sensation intact to light touch in V1, V2, V3 distribution bilaterally. 5 and a 5 strength in 4 extremities. Sensation intact to light touch in 4 extremities. 2+ pulses noted in the bilateral upper and lower extremities. There is no palpable cord. negative Homans sign. Muscular compartments are soft. The pelvis is stable. There is a small palpable nontender effusion on the right posterior elbow, suggestive of olecranon bursitis. There is no redness, pus or streaking. The elbow has full/complete intact passive and range of motion. The patient has no pain with passive and active range of motion of the elbows. Head and Torso: No HEENT Abnormality, No Neck Tenderness, No Chest/Lungs Abnormality, No Abdominal Tenderness, No Back Tenderness Shoulder Exam: Yes Normal Range of Motion in Shoulder, No Shoulder Tenderness, No Clavicle Tenderness, No Shoulder Deformity, No AC Joint Tenderness Arm Exam: No Arm/Humerus Tenderness, No Arm Deformity Elbow: Yes Normal Range of Motion in Elbow, No Elbow Tenderness, No Elbow Deformity Forearm: No Forearm Tenderness, No Forearm Deformity, No Pain with Pronation, No Pain with Supination Wrist: Yes Normal ROM in Wrist, No Wrist Tenderness, No Wrist Deformity, No Snuffbox Tenderness, No Pain with Axial Thumb Compression Hand: Yes Normal ROM in Digit(s), No Hand Tenderness, No Hand Deformity, No Digit Tenderness, No Digit(s) Deformity, No Tendon Dysfunction CMS Exam: Yes Normal Distal Pulses, Yes Normal Capillary Refill, Yes Normal D istal Sensation, No Broken Skin ED Course Vital Signs 01/20/21 08:27 Temperature 98.4 F Pulse Rate 82 Respiratory 18 Rate Blood Pressure 151/97 [Left] O2 Sat by Pulse 100 Oximetry ED Medical Decision Making - Lab Data Vital Signs 01/20/21 08:27 Temperature 98.4 F Pulse Rate 82 Respiratory 18 Rate Blood Pressure 151/97 [Left] O2 Sat by Pulse 100 Oximetry - Radiology Data Radiology results: report reviewed, image reviewed Prior right elbow x-ray reviewed and appreciated - Medical Decision Making Differential diagnosis, including but not limited to: Olecranon bursitis, encounter for medical screening examination Assessment and plan: Pleasant and cooperative 50-year-old gentleman, with a known history of olecranon bursitis, presenting with minimally painful swelling to right posterior elbow, suggestive of recurrent olecranon effusion, less likely bursitis. He has no redness, pus, streaking or significant tenderness, active and passive range of motion are intact, muscular compartments are soft, and he is neurovascularly intact. No indication for imaging at this time. Rest, ice, compression, elevation. Alternate Tylenol and Motrin. Physical activities as tolerated. Have discussed this with the patient. He has articulated understanding. Return precautions are reviewed Critical care attestation.: If time is entered above; I have spent that time in minutes in the direct care of this critically ill patient, excluding procedure time. ED Disposition Clinical Impression: Effusion of right olecranon bursa Disposition: -01 TO HOME OR SELFCARE Is pt being admited?: No Does the pt Need Aspirin: No Condition: Good Instructions: Elbow Bursitis Rehab-SportsMed, RICE Therapy for Routine Care of Injuries Additional Instructions: Patient may alternate Tylenol/acetaminophen, 650 mg by mouth, every 4-6 hours, as needed for pain, maximum daily dose to not exceed 3 g per 24 hours. The patient may also take ibuprofen, 400 mg by mouth, with food, every 6 hours as needed for physical pain. The patient may alternate ice packs and heat packs as well as warm compresses to the affected area, as needed for physical disco mfort. Recommend avoidance of heavy lifting, avoidance of repetitive strenuous physical activity, patient may participate in light duty and physical activities as tolerated. Patient should follow-up with a primary care doctor or orthopedist/sports physician within the next 10 to 14 days for presumed olecranon bursitis and/or effusion. Please return to the emergency room right away with new pain, worsened pain, migration of pain, projectile vomiting, change in mental status, confusion, inability tolerate liquid feeds, new, worsened or different pain not present on the initial emergency room evaluation. Referrals: PRIMARY CAREMD [Primary Care Provider] - 3-5 Days CAMRON ARTEAGA MD [Staff Physician] - 3-5 Days [facility] [Provider Group] - 3-5 Days Forms: Work/School Release Form(ED)
[2021-01-20] MEDS ORDERED: IBUPROFEN 400 MG TAB PO ONE (09:38)
[2021-01-20] MEDS ORDERED: ACETAMINOPHEN 325 MG TAB PO ONE (09:38)
== END 2021-01-20 10:35 | disposition home or self-care (01) ==
LOC: ED 08:24
DX: M25.421 Effusion, right elbow (principal); I10 Essential (primary) hypertension; F17.200 Nicotine dependence, unspecified, uncomplicated
CPT/HCPCS: 99282

== ENCOUNTER 2021-01-21 07:36 | Emergency (ER) | payer BC ==
--- NOTE | 2021-01-21 10:28 | Emergency Department Report ---
ED Extremity Problem HPI - General Chief complaint: Extremity Problem,Nontraumatic Stated complaint: RT ELBOW SWELLING Time Seen by Provider: 01/21/21 10:09 Source: patient Mode of arrival: Ambulatory Limitations: No Limitations - History of Present Illness Initial comments: 50-year-old male with a past medical history of hypertension and hyperlipidemia and olecranon bursitis of the right elbow presents to the ER today with complaints of worsening swelling to his posterior right elbow. He was patient was seen yesterday with complaints of nontraumatic right posterior elbow swelling and pain. Patient was instructed to take Tylenol or ibuprofen and he was also instructed to alternate ice packs and heat packs as well as warm compresses to the area as needed and to avoid heavy lifting and repetitive strenuous activity and to follow-up with primary care doctor and/or orthopedic/sports position within the next 10 to 14 days. Patient returns today because he states that since being seen yesterday he has had increasing swelling to the right posterior elbow. He states that he has been taking a Tylenol but did not take any ibuprofen. He works here in the hospital intermittent department and went back to work yesterday after being seen has continued to do his usual routine. Patient states that he did go down to Dr. Nava's office to hopefully get an appointment for tomorrow. He does not have a set appointment yet he was told that he will be called. He denies any obvious redness to the area, bruising, he denies any fever, chills, chest pain, shortness of breath or any other symptoms at this time. Of note: Reviewed patient's visit from yesterday and physician's note. Complaint: joint swelling, joint paint -: days(s) (2) Location: right, elbow - Related Data Previous Rx's Medication Instructions Recorded Last Taken Type Ibuprofen [Motrin] 600 mg PO Q8H PRN #30 tablet 09/26/15 Unknown Rx Ciprofloxacin HCl [Ciprofloxacin 500 mg PO BID #20 tablet 03/03/16 Unknown Rx TAB] Metoclopramide [Reglan] 10 mg PO QID PRN #30 tablet 03/03/16 Unknown Rx metroNIDAZOLE [Flagyl] 500 mg PO Q8HR #30 tablet 03/03/16 Unknown Rx oxyCODONE [roxiCODONE] 5 mg PO Q6HR PRN #20 tablet 03/03/16 Unknown Rx Cyclobenzaprine [Flexeril] 10 mg PO QHS PRN #20 tablet 06/28/17 Unknown Rx Ibuprofen [Motrin 800 MG tab] 800 mg PO Q8HR PRN #40 tablet 06/28/17 Unknown Rx Cyclobenzaprine [Flexeril] 10 mg PO QHS PRN #10 tablet 04/11/18 Unknown Rx Ibuprofen [Motrin] 600 mg PO Q8H PRN #20 tablet 04/11/18 Unknown Rx Naproxen 500 mg PO Q12H PRN #20 tablet 10/22/19 Unknown Rx methOCARBAMOL [Robaxin TAB] 500 mg PO Q6H #30 tablet 05/07/20 Unknown Rx methylPREDNISolone [Medrol 4MG 4 mg PO ONCE #1 tab.ds.pk 05/07/20 Unknown Rx DOSEPAK (21 tabs)] Indomethacin 50 mg PO Q8H PRN 7 Days #21 capsule 05/19/20 Unknown Rx Ibuprofen [Motrin 600 MG tab] 600 mg PO Q8H PRN #20 tablet 01/21/21 Unknown Rx Allergies Allergy/AdvReac Type Severity Reaction Status Date / Time No Known Allergies Allergy Verified 07/05/14 10:48 ED Review of Systems ROS: Stated complaint: RT ELBOW SWELLING Other details as noted in HPI Comment: All other systems reviewed and negative Constitutional: denies: chills, fever ENT: denies: ear pain, throat pain, dental pain, hearing loss, epistaxis, congestion Respiratory: denies: cough, shortness of breath, SOB with exertion, SOB at rest, wheezing Cardiovascular: denies: chest pain, palpitations Endocrine: no symptoms reported Gastrointestinal: denies: abdominal pain, nausea, diarrhea, constipation, hematemesis, melena, hematochezia Genitourinary: denies: urgency, dysuria, frequency, hematuria, discharge, testicular pain, testicular mass Skin: denies: rash, lesions, change in color, change in hair/nails, pruritus Neurological: denies: headache, weakness, numbness, paresthesias, confusion, abnormal gait, vertigo Psychiatric: denies: anxiety, depression, auditory hallucinations, visual hallucinations, homicidal thoughts, suicidal thoughts Hematological/Lymphatic: denies: easy bleeding, easy bruising, swollen glands ED Past Medical Hx - Past Medical History Previous Medical History?: Yes Hx Hypertension: Yes (none compliant) Additional medical history: High cholosterol - Surgical History Past Surgical History?: No Additional Surgical History: denies - Social History Smoking Status: Current Every Day Smoker Substance Use Type: None - Medications Home Medications: Home Medications Medication Instructions Recorded Confirmed Last Taken Type Ibuprofen [Motrin] 600 mg PO Q8H PRN #30 tablet 09/26/15 Unknown Rx Ciprofloxacin HCl [Ciprofloxacin 500 mg PO BID #20 tablet 03/03/16 Unknown Rx TAB] Metoclopramide [Reglan] 10 mg PO QID PRN #30 tablet 03/03/16 Unknown Rx metroNIDAZOLE [Flagyl] 500 mg PO Q8HR #30 tablet 03/03/16 Unknown Rx oxyCODONE [roxiCODONE] 5 mg PO Q6HR PRN #20 tablet 03/03/16 Unknown Rx Cyclobenzaprine [Flexeril] 10 mg PO QHS PRN #20 tablet 06/28/17 Unknown Rx Ibuprofen [Motrin 800 MG tab] 800 mg PO Q8HR PRN #40 tablet 06/28/17 Unknown Rx Cyclobenzaprine [Flexeril] 10 mg PO QHS PRN #10 tablet 04/11/18 Unknown Rx Ibuprofen [Motrin] 600 mg PO Q8H PRN #20 tablet 04/11/18 Unknown Rx Naproxen 500 mg PO Q12H PRN #20 tablet 10/22/19 Unknown Rx methOCARBAMOL [Robaxin TAB] 500 mg PO Q6H #30 tablet 05/07/20 Unknown Rx methylPREDNISolone [Medrol 4MG 4 mg PO ONCE #1 tab.ds.pk 05/07/20 Unknown Rx DOSEPAK (21 tabs)] Indomethacin 50 mg PO Q8H PRN 7 Days #21 capsule 05/19/20 Unknown Rx Ibuprofen [Motrin 600 MG tab] 600 mg PO Q8H PRN #20 tablet 01/21/21 Unknown Rx ED Physical Exam - General Limitations: No Limitations General appearance: alert, in no apparent distress - Head Head exam: Present: atraumatic, normocephalic, normal inspection - Eye Eye exam: Present: normal appearance, PERRL, EOMI Pupils: Present: normal accommodation - ENT ENT exam: Present: normal exam, mucous membranes moist - Neck Neck exam: Present: normal inspection - Respiratory Respiratory exam: Present: normal lung sounds bilaterally. Absent: respiratory distress, wheezes, rales - Cardiovascular Cardiovascular Exam: Present: regular rate, normal rhythm, normal heart sounds - GI/Abdominal GI/Abdominal exam: Present: soft. Absent: distended, tenderness, guarding, rebound - Expanded Upper Extremity Exam Right Elbow exam: Present: tenderness (Exquisite point tenderness that olecranon area of the right posterior elbow), swelling (Mild to moderate swelling noted to posterior aspect of elbow), erythema (Subtle erythema noted to posterior right elbow without any streaking). Absent: full ROM (Range of motion of the right elbow mildly reduced due to pain.), abrasion, laceration, ecchymosis, deformity, crepidus, dislocation, pain w/ pronation/supination, tenderness over radial head Neurosensory exam: Present: radial nerve intact, ulnar nerve intact, median nerve intact Vascular: Present: normal capillary refill. Absent: vascular compromise - Back Exam Back exam: Present: normal inspection - Neurological Exam Neurological exam: Present: alert, oriented X3, CN II-XII intact, normal gait - Psychiatric Psychiatric exam: Present: normal affect, normal mood - Skin Skin exam: Present: intact ED Course Vital Signs 01/21/21 01/21/21 01/21/21 08:32 10:57 10:58 Temperature 98.5 F Pulse Rate 83 75 Respiratory 18 16 16 Rate Blood Pressure 175/106 Blood Pressure 159/97 [Left] O2 Sat by Pulse 100 100 Oximetry - Joint Aspiration/Injection Time Out Performed: No Indications: to relieve pressure/pain Side of Body: right Joint Aspirated: elbow Ultrasound Guidance: No Skin Prep: Povidone-Iodine1% Local Anesthesia Used: other (None) Needle Size Used: 18G Syringe Size Used: 10cc Fluid Obtained: clear (Clear yellow) Total Fluid Obtained (mls): 3 Patient Tolerated Procedure: well, no complications Complications: none Additional Comments: Pressure dressing applied after procedure. ED Medical Decision Making - Medical Decision Making Patient presented to the ER today with complaints of worsening right posterior elbow swelling after being seen here yesterday for similar symptoms.. He has a known history of olecranon bursitis to his right posterior elbow. Dr García was consulted to see patient, since he saw him yesterday for his elbow. See his noted for detail. Per Dr garcía there is worsening swelling and offered patient aspiration of the bursa to give him some relief of his symptoms which patient opted to have done. See my procedure note for detail. At this time there are no signs of a septic joint, septic bursa or cellulitis. Compression dressing applied after procedure. Patient instructed to take ibuprofen as prescribed to help with pain. He will be taken off work today and tomorrow to rest his arm and inform him to try to follow-up with Dr. Nava tomorrow. Patient expressed understanding of instructions and agree with plan. Patient was stable at time of discharge. Critical care attestation.: If time is entered above; I have spent that time in minutes in the direct care of this critically ill patient, excluding procedure time. ED Disposition Clinical Impression: Olecranon bursitis Disposition: TO HOME OR SELFCARE Is pt being admited?: No Does the pt Need Aspirin: No Condition: Stable Instructions: Elbow Bursitis, [id number] Additional Instructions: Keep elbow wrapped for the next 2 to 3 days. You can remove the Didier wrap from the elbow when you shower. I would avoid any repetitive or strenuous activity for the next 2 to 3 days. Recommend applying ice over the elbow and taking ibuprofen as prescribed. It is important that you try to follow-up with operations specialist tomorrow. Return to the ER if any of your symptoms changes or worsens in any way. Prescriptions: Ibuprofen [Motrin 600 MG tab] 600 mg PO Q8H PRN #20 tablet PRN Reason: Pain Referrals: ALEJANDRO REYES MD [Primary Care Provider] - 3-5 Days CAMRON NAVA MD [Staff Physician] - 2-3 Days Forms: Work/School Release Form(ED) Time of Disposition: 11:43
[2021-01-21] MEDS ORDERED: dexAMETHasone 4 MG/ML VIAL IM ONE (10:29)
[2021-01-21] MEDS ORDERED: IBUPROFEN 400 MG TAB PO ONE (10:36)
[2021-01-21 10:59] VITALS: BP 159/97
--- NOTE | 2021-01-21 11:28 | Event Note ---
Date of service: 01/21/21 Face to Face: [id number] examination performed with this patient. He presented yesterday for an olecranon bursa effusion. He has been using the right upper extremity vigorously, and reportedly doing heavy lifting, has not been participating with light duty, and not really using ibuprofen and/or acetaminophen. He is follow- up with outpatient orthopedics tomorrow. On my examination, the bursa is more swollen, and minimally tender, and warm. He has full range of motion of the elbow. He has no pus, streaking, redness, or tenderness of the distal muscular compartments. His examination is not suggestive of septic joint. This is suggestive of olecranon bursitis. He felt much improved after aspiration by the physician human resource assistant. He will follow up with orthopedics tomorrow. Vital Signs 01/21/21 01/21/21 01/21/21 08:32 10:57 10:58 Temperature 98.5 F Pulse Rate 83 75 Respiratory 18 16 16 Rate Blood Pressure 175/106 Blood Pressure 159/97 [Left] O2 Sat by Pulse 100 100 Oximetry
== END 2021-01-21 11:53 | disposition home or self-care (01) ==
LOC: ED 07:36
DX: M70.21 Olecranon bursitis, right elbow (principal); I10 Essential (primary) hypertension; E78.00 Pure hypercholesterolemia, unspecified; F17.200 Nicotine dependence, unspecified, uncomplicated; Z79.899 Other long term (current) drug therapy
CPT/HCPCS: 20605; 96372; 99282; J1100

== ENCOUNTER 2021-02-05 20:43 | Emergency (ER) | payer BC ==
--- NOTE | 2021-02-05 21:53 | Emergency Department Report ---
Stated Complaint: RT ELBOW SWELLING - HPI History of Present Illness: 50-year-old -[place] male presents to the emergency room for right elbow swelling. Patient states he has had this in the past and they had drained it. Patient comes in with a wrapped with an Didier bandage. Patient is taking nothing for pain and is asking for pain medication. Patient denies any injury. Patient states that he has spoke to Dr. Nava in the past and he states that it would just keep coming back. - Exam Physical Exam: Patient is alert and oriented x3 no acute distress nontoxic in appearance Respiratory no acute respiratory distress Heart rate stable at 68 Right elbow soft squishy swelling full range of motion nontender to touch not erythematous. Ambulatory without difficulties MSE screening note: Focused history and physical exam performed. Due to findings the following was ordered: 50-year-old -[place] male presents to the emergency room for right elbow swelling. Patient states he has had this in the past and they had drained it. Patient comes in with a wrapped with an Didier bandage. Patient is taking nothing for pain and is asking for pain medication. Patient denies any injury. Patient states that he has spoke to Dr. Nava in the past and he states that it would just keep coming back. Patient has olecranon bursitis. Recommend ibuprofen Tylenol negative elbow bursitis wrap [id number]. Follow-up with an orthopedic provider ED Disposition for [facility] [place] Disposition: DC-01 TO HOME OR SELFCARE Is pt being admited?: No Does the pt Need Aspirin: No Condition: Stable Additional Instructions: Follow-up with Dr. Nava Tylenol ibuprofen for pain. You can use an Didier bandage or elbow bursitis wrap which is [id number]
== END 2021-02-05 21:00 | disposition home or self-care (01) ==
LOC: ED 20:43
DX: M25.421 Effusion, right elbow (principal); Z53.21 Procedure and treatment not carried out due to patient leaving prior to being seen by health care provider

== ENCOUNTER 2021-11-05 06:32 | Outpatient (CLI) | payer BC ==
[2021-11-05 07:18] LABS: Basophils % (Auto) 0.6 % (0.0-1.8); Eosinophils # (Auto) 0.2 K/mm3 (0.0-0.4); Eosinophils % (Auto) 5.4 % (0.0-4.3); Hematocrit 41.7 % (35.5-45.6); Hemoglobin 14.1 gm/dl (11.8-15.2); Lymphocytes # (Auto) 1.4 K/mm3 (1.2-5.4); Mean Corpuscular HGB Conc 34 % (32-34); Mean Corpuscular Volume 86 fl (84-94); Monocytes # (Auto) 0.5 K/mm3 (0.0-0.8); Monocytes % (Auto) 10.8 % (0.0-7.3); Platelet Count 216 K/mm3 (140-440); Red Blood Count 4.85 M/mm3 (3.65-5.03); Red Cell Distribution Width 13.7 % (13.2-15.2)
[2021-11-05 07:40] LABS: Alanine Aminotransferase 30 units/L (7-56); Albumin 4.9 g/dL (3.9-5); BUN/Creatinine Ratio 13; Blood Urea Nitrogen 14 mg/dL (9-20); Chol/HDL Ratio 5.31 %; HDL Cholesterol 60 mg/dL (40-59); Hemolysis Index 3; LDL Cholesterol,Direct 238 mg/dL (50-130)
[2021-11-08 12:11] LABS: Vitamin D, 25-OH, D2 <4 ng/mL
== END 2021-11-05 06:33 | disposition home or self-care (01) ==
LOC: LAB 06:32
PROVIDERS: ATTEND Internal Medicine
DX: Z00.00 Encounter for general adult medical examination without abnormal findings (principal); E78.5 Hyperlipidemia, unspecified; E55.9 Vitamin D deficiency, unspecified; E03.9 Hypothyroidism, unspecified; I10 Essential (primary) hypertension; R39.11 Hesitancy of micturition
CPT/HCPCS: 36415; 80053; 80061; 82306; 83036; 84153; 84443; 85025